=== PATIENT | female | born 1975 | race Caucasian/White ===

== ENCOUNTER 2016-10-06 19:48 | Observation (INO) | payer MEDICAID ==
[2016-10-06] MEDS ORDERED: HYDROmorphone 0.5 MG/0.5 ML Syringe IVPUSH ONE ×3 (21:02→23:33)
[2016-10-06] MEDS ORDERED: Sodium Chloride 0.9% 1,000 ML IV SCH (21:15)
--- NOTE | 2016-10-06 22:12 | EDM.PDOC ---
[id number] Complaint: ISSUES WITH GASTRIC BYPASS Time Seen by Provider: 10/06/16 20:50 Source of Information: Reports: Patient History Limitations: Reports: No Limitations - History of Present Illness INITIAL COMMENTS - FREE TEXT/NARRATIVE: 41-year-old female with a history of gastric bypass 10 years ago has had recurring problems with intermittent bowel obstruction and adhesions but is been doing well for the past 3 years. She started developing pain 3 weeks ago and was hoping it would pass but over the past 12 hours it has become much worse. It is periumbilical into the epigastric area, she has developed peritoneal irritation and nausea, some vomiting attempts. Bowels are still moving. No fever or chills. Onset: Gradual Severity: Moderate Associated Symptoms: Reports: Loss of Appetite, Malaise, Nausea/Vomiting. Denies: Chest Pain, Cough, Fever/Chills, Shortness of Breath Lower Abdominal Pain Score (Numeric/FACES): 9 - Related Data Allergies Allergy/AdvReac Type Severity Reaction Status Date / Time diphenhydramine Allergy Itching Verified 10/11/15 23:38 hydroxyzine HCl Allergy Itching Verified 10/11/15 23:38 [From Vistaril] hydroxyzine pamoate Allergy Itching Verified 10/11/15 23:38 [From Vistaril] ketorolac tromethamine Allergy Itching Verified 10/11/15 23:38 [From Toradol] tramadol HCl [From Ultram] Allergy Itching Verified 10/11/15 23:38 zolpidem tartrate Allergy Itching Verified 10/11/15 23:38 [From Ambien] Home Meds: Home Meds Calcium Carbonate/Vitamin D3 [Calcium Carb 500 MG] 1 tab PO DAILY 07/29/15 [ History] Cholecalciferol (Vitamin D3) [Vitamin D3] 1,000 unit PO DAILY 07/29/15 [History] rOPINIRole [Requip] 1 mg PO DAILY 07/29/15 [History] Past Medical History Gastrointestinal History: Reports: Bowel Obstruction, Irritable Bowel Syndrome Genitourinary History: Reports: None 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 (See Below) Other OB/BYN History: complete abdominal hysterectomy Musculoskeletal History: Reports: Back Pain, Chronic Hematologic History: Reports: Anemia, B12 Deficiency, Blood Transfusion(s), Folic Acid - Infectious Disease History Infectious Disease History: Reports: Chicken Pox - Past Surgical History HEENT Surgical History: Reports: Tonsillectomy GI Surgical History: Reports: Appendectomy, Bariatric Procedure, Cholecystectomy , Colonoscopy, EGD, Small Bowel Female Surgical History: Reports: Hysterectomy Neurological Surgical History: Reports: Lumbar Spine, Other (See Below) Social & Family History - Tobacco Use Smoking Status *Q: Heavy Tobacco Smoker Years of Tobacco use: 10 Packs/Tins Daily: 0.5 Used Tobacco, but Quit: No Second Hand Smoke Exposure: Yes - Caffeine Use Caffeine Use: Reports: None - Alcohol Use Days Per Week of Alcohol Use: 0 - Recreational Drug Use Recreational Drug Use: No ED ROS GENERAL - Review of Systems Review Of Systems: See Below Constitutional: Denies: Fever, Chills HEENT: Reports: No Symptoms Respiratory: Denies: Shortness of Breath, Cough Cardiovascular: Denies: Chest Pain GI/Abdominal: Reports: Abdominal Pain, Nausea, Vomiting. Denies: Diarrhea : Reports: No Symptoms Musculoskeletal: Reports: No Symptoms Skin: Reports: No Symptoms Neurological: Reports: No Symptoms Psychiatric: Reports: No Symptoms ED EXAM, GI/ABD - Physical Exam Exam: See Below Exam Limited By: No Limitations General Appearance: Alert, Moderate Distress Eyes: Bilateral: Normal Appearance (No jaundice, normal hydration) Head: Atraumatic Respiratory/Chest: No Respiratory Distress, Lungs Clear Cardiovascular: Regular Rate, Rhythm. No: Tachycardia GI/Abdominal: Normal Bowel Sounds, Soft, Tenderness (Exquisite tenderness with guarding across the upper abdomen, moderate rebound tenderness) Extremities: No: Pedal Edema Neurological: Alert, Oriented, No Motor/Sensory Deficits Psychiatric: Anxious Skin Exam: Warm, Dry Course - Vital Signs Last Recorded V/S: Last Vital Signs Temp 96.6 F 10/07/16 00:22 Pulse 63 10/07/16 00:22 Resp 16 10/07/16 00:22 BP 125/75 10/07/16 00:22 Pulse Ox 98 10/07/16 00:22 - Orders/Labs/Meds Orders: Active Orders 24 hr Category Date Time Status Abdomen Pelvis w Cont [CT] Stat Exams 10/06/16 22:10 Taken Sodium Chloride 0.9% [Normal Saline] 1,000 ml Med 10/06/16 21:15 Active IV ASDIRECTED Medication Orders Acetaminophen (Tylenol) 650 mg PO Q4H PRN PRN Reason: analgesia/fever Hydromorphone HCl (Dilaudid) 2 mg PO Q4H PRN PRN Reason: Pain Sodium Chloride (Normal Saline) 1,000 mls @ 500 mls/hr IV ASDIRECTED NATALYA Last Admin: 10/06/16 21:41 Dose: 500 mls/hr Dextrose/Lactated Ringer's (Dextrose 5%-Lactated Ringers) 1,000 mls @ 150 mls/ hr IV ASDIRECTED NATALYA Pantoprazole Sodium (Protonix Iv) 40 mg IVPUSH Q12H NATALYA Labs: Laboratory Tests 10/06/16 10/06/16 Range/Units 21:40 21:40 WBC 4.4 L (4.5-11.0) K/uL RBC 4.04 (3.30-5.50) M/uL Hgb 13.0 (12.0-15.0) g/dL Hct 39.1 (36.0-48.0) % MCV 97 (80-98) fL MCH 32 H (27-31) pg MCHC 33 (32-36) % Plt Count 173 (150-400) K/uL Neut % (Auto) 58 (36-66) % Lymph % (Auto) 36 (24-44) % [place] % (Auto) 5 (2-6) % Eos % (Auto) 0 L (2-4) % Baso % (Auto) 1 (0-1) % Sodium 139 L (140-148) mmol/L Potassium 4.9 (3.6-5.2) mmol/L Chloride 104 (100-108) mmol/L Carbon Dioxide 29 (21-32) mmol/L Anion Gap 10.9 (5.0-14.0) mmol/L BUN 8 (7-18) mg/dL Creatinine 0.5 L (0.6-1.0) mg/dL Est Cr Clr Drug Dosing 123.72 mL/min Estimated GFR (MDRD) > 60 (>60) Glucose 93 (74-106) mg/dL Calcium 8.5 (8.5-10.1) mg/dL Total Bilirubin 0.3 (0.2-1.0) mg/dL AST 42 H D (15-37) U/L ALT 24 (12-78) U/L Alkaline Phosphatase 184 H (46-116) U/L Total Protein 7.1 (6.4-8.2) g/dL Albumin 3.4 (3.4-5.0) g/dL Globulin 3.7 H (2.3-3.5) g/dL Albumin/Globulin Ratio 0.9 L (1.2-2.2) Amylase 45 (25-115) U/L Lipase 88 (73-393) U/L Meds: Medications Generic Name Dose Route Start Last Admin Trade Name Freq PRN Reason Stop Dose Admin Acetaminophen 650 mg 10/06/16 23:26 Tylenol PO Q4H PRN analgesia/fever Hydromorphone HCl 2 mg 10/06/16 23:31 Dilaudid PO Q4H PRN Pain Sodium Chloride 1,000 mls @ 500 mls/hr 10/06/16 21:15 10/06/16 21:41 Normal Saline IV 500 mls/hr ASDIRECTED NATALYA Administration Dextrose/Lactated Ringer's 1,000 mls @ 150 mls/hr 10/06/16 23:30 Dextrose 5%-Lactated Ringers IV ASDIRECTED NATALYA Pantoprazole Sodium 40 mg 10/06/16 23:45 Protonix Iv IVPUSH Q12H NATALYA Discontinued Medications Generic Name Dose Route Start Last Admin Trade Name Freq PRN Reason Stop Dose Admin Hydromorphone HCl 0.5 mg 10/06/16 21:02 10/06/16 21:43 Dilaudid IVPUSH 10/06/16 21:03 0.5 mg ONETIME ONE Administration Hydromorphone HCl 0.5 mg 10/06/16 22:25 10/06/16 22:27 Dilaudid IVPUSH 10/06/16 22:26 0.5 mg ONETIME ONE Administration Hydromorphone HCl Confirm 10/06/16 22:26 10/06/16 22:30 Dilaudid Administered 10/06/16 22:27 Not Given Dose 0.5 mg .ROUTE .STK-MED ONE Hydromorphone HCl 0.5 mg 10/06/16 23:33 10/06/16 23:36 Dilaudid IVPUSH 10/06/16 23:34 0.5 mg ONETIME ONE Administration Sodium Chloride 70 mls @ 3 mls/sec 10/06/16 22:18 10/06/16 22:32 Normal Saline IV 10/06/16 22:19 3 mls/sec ASDIRECTED STA Administration Iopamidol 100 ml 10/06/16 22:18 10/06/16 22:32 Isovue-300 (61%) IV 10/06/16 22:19 100 ml . DIRECTED STA Administration - Re-Assessments/Exams Free Text/Narrative Re-Assessment/Exam: 10/06/16 22:19 An IV was started, patient was hydrated with normal saline and given 0.5 mg of Dilaudid which provided her with some relief. CBC returned normal, extended chemistry profile, amylase and lipase were also reassuring. Patient then had a CT her abdomen and pelvis with IV contrast enhancement. 10/06/16 23:48 CT showed changes consistent with a partial bowel obstruction possibility or even intussusception at the anastomosis of her previous surgery of the small bowel. These findings were discussed with Meghan Beverly, she agreed to admit the patient for symptom control and observation. Departure - Departure Time of Disposition: 00:29 Disposition: Home, Self-Care 01 Condition: Fair Clinical Impression: Small bowel obstruction, Abdominal pain - Discharge Information - My Orders Last 24 Hours: My Active Orders 10/06/16 21:15 Sodium Chloride 0.9% [Normal Saline] 1,000 ml IV ASDIRECTED 10/06/16 22:10 Abdomen Pelvis w Cont [CT] Stat - Assessment/Plan Last 24 Hours: My Active Orders 10/06/16 21:15 Sodium Chloride 0.9% [Normal Saline] 1,000 ml IV ASDIRECTED 10/06/16 22:10 Abdomen Pelvis w Cont [CT] Stat
[2016-10-06] MEDS ORDERED: Iopamidol 612 MG/ML 100 ML Bottle IV STA (22:18)
[2016-10-06] MEDS ORDERED: HYDROmorphone 0.5 MG/0.5 ML Syringe ONE (22:26)
[2016-10-06] MEDS ORDERED: Pantoprazole 40 MG Vial IVPUSH SCH (23:45)
[2016-10-07] MEDS: Dextrose 5%-Lactated Ringers 1,000 ML IV SCH ×3 (00:15→19:43)
[2016-10-07] MEDS: HYDROmorphone 2 MG Tab PO PRN ×5 (01:05→23:17)
[2016-10-07] MEDS: Acetaminophen 325 MG Tab PO PRN ×2 (03:57→08:14)
[2016-10-07] MEDS ORDERED: Ondansetron 4 MG/2 ML SDV IVPUSH PRN (07:59)
[2016-10-07] MEDS ORDERED: Naloxone 0.4 MG/ML SDV IV PRN (08:14)
[2016-10-07] MEDS ORDERED: HYDROmorphone/Normal Saline 15 MG/30 ML PCA IV PRN (08:15)
--- NOTE | 2016-10-07 08:17 | PCM.HP ---
H&P History of Present Illness - General Date of Service: 10/07/16 Admit Problem/Dx: Admission Diagnosis/Problem Admission Diagnosis/Problem Partial small bowel obstruction Source of Information: Patient History Limitations: Reports: No Limitations - History of Present Illness Initial Comments - Free Text/Narative: Ivis states she has been having a stabbing pain in her abdomen for 2 weeks and it gradually has gotten worse. Pain is in the periumbilical area radiates down to the right lower pelvic area and down her right leg. Associated with nausea and has vomited twice 2 days ago and once 1 day ago. Aggravating factors: moving Alleviating factors: laying down Pain is a 8/10 before pain medication and a 8/10 after pain medication BMs have been regular, passing flatus. Not eating. Location: Reports: Abdomen Quality: Reports: Stabbing Severity: Severe Improves with: Reports: Rest Worsens with: Reports: Movement Associated Symptoms: Reports: Nausea/Vomiting Lower Abdominal Pain Score (Numeric/FACES): 8 - Related Data Allergies/Adverse Reactions: Allergies Allergy/AdvReac Type Severity Reaction Status Date / Time diphenhydramine Allergy Itching Verified 10/11/15 23:38 hydroxyzine HCl Allergy Itching Verified 10/11/15 23:38 [From Vistaril] hydroxyzine pamoate Allergy Itching Verified 10/11/15 23:38 [From Vistaril] ketorolac tromethamine Allergy Itching Verified 10/11/15 23:38 [From Toradol] tramadol HCl [From Ultram] Allergy Itching Verified 10/11/15 23:38 zolpidem tartrate Allergy Itching Verified 10/11/15 23:38 [From Ambien] Home Medications: Home Meds Calcium Carbonate/Vitamin D3 [Calcium Carb 500 MG] 1 tab PO DAILY 07/29/15 [ History] Cholecalciferol (Vitamin D3) [Vitamin D3] 1,000 unit PO DAILY 07/29/15 [History] rOPINIRole [Requip] 1 mg PO DAILY 07/29/15 [History] Past Medical History Gastrointestinal History: Reports: Bowel Obstruction, Irritable Bowel Syndrome Genitourinary History: Reports: None 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 (See Below) Other OB/BYN History: complete abdominal hysterectomy Musculoskeletal History: Reports: Back Pain, Chronic Hematologic History: Reports: Anemia, B12 Deficiency, Blood Transfusion(s), Folic Acid - Infectious Disease History Infectious Disease History: Reports: Chicken Pox - Past Surgical History HEENT Surgical History: Reports: Tonsillectomy GI Surgical History: Reports: Appendectomy, Bariatric Procedure, Cholecystectomy , Colonoscopy, EGD, Small Bowel Female Surgical History: Reports: Hysterectomy Neurological Surgical History: Reports: Lumbar Spine, Other (See Below) Social & Family History - Tobacco Use Smoking Status *Q: Heavy Tobacco Smoker Years of Tobacco use: 10 Packs/Tins Daily: 0.5 Used Tobacco, but Quit: No Second Hand Smoke Exposure: Yes - Caffeine Use Caffeine Use: Reports: None - Alcohol Use Days Per Week of Alcohol Use: 0 - Recreational Drug Use Recreational Drug Use: No H&P Review of Systems - Review of Systems: Review Of Systems: See Below General: Reports: Chills, Night Sweats HEENT: Reports: No Symptoms Pulmonary: Reports: No Symptoms Cardiovascular: Reports: No Symptoms Gastrointestinal: Reports: Abdominal Pain, Nausea Musculoskeletal: Reports: No Symptoms Skin: Reports: No Symptoms Psychiatric: Reports: No Symptoms Neurological: Reports: No Symptoms Hematologic/Lymphatic: Reports: No Symptoms Immunologic: Reports: No Symptoms Exam - Exam Exam: See Below - Vital Signs Vital Signs: Last Vital Signs Temp 95.9 F 10/07/16 06:52 Pulse 60 10/07/16 06:52 Resp 16 10/07/16 06:52 BP 97/63 10/07/16 06:52 Pulse Ox 96 10/07/16 06:52 Weight: 145 lb 12.8 oz - Exam Quality Assessment: DVT Prophylaxis General: Alert, Oriented, Mild Distress HEENT: PERRLA Neck: Supple, Trachea Midline Lungs: Clear to Auscultation, Normal Respiratory Effort Cardiovascular: Regular Rate, Regular Rhythm Abdomen: Soft, Tenderness (in the right lower quadrant. Periumbilical area is mildly tender ) (Female) Exam: Deferred Rectal (Female) Exam: Deferred Back Exam: Normal Inspection Extremities: Normal Inspection Skin: Warm, Dry, Intact Neurological: Cranial Nerves Intact Neuro Extensive - Mental Status: Alert, Oriented x3, Withdraws to Pain, Other ( flat affect) Neuro Extensive - Motor, Sensory, Reflexes: CN II-XII Intact, Normal Gait (per history ) Psychiatric: Labile Mood - Patient Data Result Diagrams: 10/06/16 21:40 10/06/16 21:40 *Q Meaningful Use (ADM) - VTE *Q VTE Criteria *Q: - Stroke *Q Stroke Criteria *Q: - AMI *Q AMI Criteria *Q: - Problem List (1) Abdominal pain SNOMED Code(s): 46122674 ICD Code: R10.9 - UNSPECIFIED ABDOMINAL PAIN Status: Acute Priority: High Current Visit: Yes (2) Small bowel obstruction SNOMED Code(s): 165515675 ICD Code: K56.69 - OTHER INTESTINAL OBSTRUCTION Status: Acute Current Visit: Yes Problem List Initiated/Reviewed/Updated: Yes Orders Last 24hrs: Active Orders 24 hr Category Date Time Status Incentive Spirometry [RT Incentive Spirometry] [RC] Care 10/07/16 08:11 Ordered ASDIRECTED UGI w Small Bowel wo Air [CR] Routine Exams 10/07/16 08:00 Ordered CBC W/O DIFF,HEMOGRAM [HEME] Timed Lab 10/08/16 04:00 Ordered COMPREHENSIVE METABOLIC PN,CMP [CHEM] Timed Lab 10/08/16 04:00 Ordered DRUG SCREEN, URINE [URCHEM] Routine Lab 10/07/16 08:06 Uncollected FERRITIN [CHEM] Routine Lab 10/07/16 08:08 Ordered MAGNESIUM [CHEM] Routine Lab 10/07/16 08:08 Ordered MAGNESIUM [CHEM] Timed Lab 10/08/16 04:00 Ordered PHOSPHORUS [CHEM] Routine Lab 10/07/16 08:08 Ordered PHOSPHORUS [CHEM] Timed Lab 10/08/16 04:00 Ordered UA W/MICROSCOPIC [URIN] Routine Lab 10/07/16 08:07 Uncollected VITAMIN B12 [CHEM] Routine Lab 10/07/16 08:08 Ordered VITAMIN D,25 OH BY LC-MS/MS [REF] Routine Lab 10/07/16 08:08 Ordered Dextrose 5%-Lactated Ringers 1,000 ml Med 10/06/16 23:30 Active IV ASDIRECTED HYDROmorphone [Dilaudid] Med 10/06/16 23:31 Active 2 mg PO Q4H PRN HYDROmorphone/Normal Saline [Dilaudid DUST CONTROL ENGINEER 15 MG in NS Med 10/07/16 08:15 Ordered 30 ML] 15 mg IV ASDIRECTED MVI, Adult with Vitamin K [Infuvite Adult] 10 ml Med 10/07/16 08:15 Ordered Thiamine [Vitamin B-1] 100 mg Magnesium Sulfate [Magnesium Sulfate 50%] 2 gm Folic Acid 1 mg Lactated Ringers [Ringers, Lactated] 1,000 ml IV ONETIME Ondansetron [Zofran] Med 10/07/16 07:59 Ordered 4 mg IVPUSH Q4H PRN Pantoprazole [ProTONIX IV] Med 10/07/16 11:00 Active 40 mg IVPUSH Q12H rOPINIRole [Requip] Med 10/07/16 09:00 Ordered 1 mg PO DAILY Medication Orders Acetaminophen (Tylenol) 650 mg PO Q4H PRN PRN Reason: analgesia/fever Last Admin: 10/07/16 03:57 Dose: 650 mg Hydromorphone HCl (Dilaudid) 2 mg PO Q4H PRN PRN Reason: Pain Last Admin: 10/07/16 05:17 Dose: 2 mg Admin: 10/07/16 01:05 Dose: 2 mg Hydromorphone HCl (Dilaudid Loading And Unloading Supervisor 15 Mg In Ns 30 Ml) 15 mg IV ASDIRECTED [facility] PRN Reason: Protocol Dextrose/Lactated Ringer's (Dextrose 5%-Lactated Ringers) 1,000 mls @ 150 mls/ hr IV ASDIRECTED [facility] Last Admin: 10/07/16 07:14 Dose: 150 mls/hr Infusion: 10/07/16 06:56 Dose: 150 mls/hr Admin: 10/07/16 00:15 Dose: 150 mls/hr Multivitamins/Minerals 10 ml/Thiamine HCl 100 mg/ Magnesium Sulfate 2 gm/ Folic Acid 1 mg / Lactated Ringer's 1,015.2 mls @ 200 mls/hr IV ONETIME [facility] Stop: 10/07/16 13:20 Ondansetron HCl (Zofran) 4 mg IVPUSH Q4H PRN PRN Reason: Nausea/Vomiting Pantoprazole Sodium (Protonix Iv) 40 mg IVPUSH Q12H [facility] Ropinirole HCl (Requip) 1 mg PO DAILY [facility] Assessment/Plan Comment:: A: Partial Transcietn small bowel intussusception Bariatric Surgery Unspecified Surgical Malabsorption Vitamin B Deficiency Vitamin D Deficiency Restless Leg Syndrome Noncompliance with post RNY Vitamins Plan: Admitted for observation - see copy of orders in EMR Pending results of UGI with Small Bowel Follow Through will either discharge to home in AM and have follow up in [facility] If UGI shows a partial small bowel obstruction will get a consult from Kei Linda MD surgeon disease control inspector. Meghan Flood
[2016-10-07] MEDS: rOPINIRole 1 MG Tab PO SCH (08:30)
[2016-10-07] MEDS ORDERED: rOPINIRole 0.5 MG Tab PO SCH (09:00)
[2016-10-07] MEDS ORDERED: MVI, Adult with Vitamin K 10 ML, Thiamine 100 MG, Magnesium Sulfate 2 GM, Folic Acid 1 ... IV ONE ×5 (09:30)
[2016-10-07] MEDS ORDERED: Iohexol 300 MG/ML 30 ML Bottle PO ONE (09:53)
[2016-10-07] MEDS ORDERED: Iohexol 647 MG/ML 50 ML SDV PO SCH (10:00)
--- NOTE | 2016-10-07 11:28 | CR ---
UGI w Small Bowel wo Air HISTORY: Abnormal CT scan yesterday. COMPARISON: CT scan 10/06/2016. FINDINGS: The esophagus appears normal patient has had prior gastric bypass the small gastric remnan t is normal. Small bowel transit time normal. At the distal anastomosis of patient's gastric bypass there is no evidence for intussusception to correlate with CT scan findings which may have been gandhi sient.. The terminal ileum appears unremarkable. Impression: 1. Negative upper GI small bowel follow-through study. Specifically no obstruction or abnormality at the small bowel anastomosis of patient's gastric bypass. These findings on the prior CT scan and ma y have been a transient finding.
[2016-10-07] MEDS: Pantoprazole 40 MG Vial IVPUSH SCH ×2 (11:36→23:10)
[2016-10-07] MEDS ORDERED: Ondansetron 4 MG Tab.DIS PO PRN (12:42)
[2016-10-07] MEDS ORDERED: Cyanocobalamin (Vitamin B12) 1,000 MCG/ML SDV IM ONE (14:00)
[2016-10-07] MEDS: Celecoxib 100 MG Cap PO SCH ×2 (14:13→21:36)
[2016-10-07] MEDS ORDERED: Iron Sucrose Complex 500 MG in Sodium Chloride 0.9% 250 ML IV ONE (14:30)
[2016-10-07] MEDS ORDERED: Sodium Chloride 0.9% 500 ML IV SCH ×2 (14:30→15:00)
[2016-10-07] MEDS: Dicyclomine 10 MG Cap PO SCH ×2 (16:36→21:36)
[2016-10-07] MEDS ORDERED: Thiamine 100 MG Tab PO SCH (21:00)
[2016-10-07] MEDS ORDERED: Celecoxib 100 MG Cap PO SCH (21:00)
[2016-10-07] MEDS: Multivitamins with Iron Tab.Chew CHEW SCH (21:36)
[2016-10-08] MEDS: Dextrose 5%-Lactated Ringers 1,000 ML IV SCH (02:50)
[2016-10-08] MEDS: HYDROmorphone 2 MG Tab PO PRN (03:12)
[2016-10-08] MEDS: Dicyclomine 10 MG Cap PO SCH ×2 (03:12→09:57)
[2016-10-08] MEDS: Acetaminophen 325 MG Tab PO PRN (05:58)
[2016-10-08] MEDS: Multivitamins with Iron Tab.Chew CHEW SCH (08:38)
[2016-10-08] MEDS: Celecoxib 100 MG Cap PO SCH (08:38)
[2016-10-08] MEDS: rOPINIRole 1 MG Tab PO SCH (08:38)
[2016-10-08] MEDS ORDERED: Iron Sucrose Complex 500 MG in Sodium Chloride 0.9% 250 ML IV ONE (09:00)
[2016-10-08 11:37] VITALS: BP 113/83
[2016-10-08] MEDS: Pantoprazole 40 MG Vial IVPUSH SCH (13:06)
--- NOTE | 2016-10-09 08:18 | DISCH ---
ADMISSION DIAGNOSES: Pain in the periumbilical area, SP Chuck-en-Y gastric bypass surgery, unspecified surgical malabsorption, B12 deficiency, history of nicotine addiction, chronic back pain, iron deficiency anemia B12. DISCHARGE DIAGNOSES: 1. Abdominal pain with ruled out bowel obstruction. 2. Irritable bowel syndrome. 3. Low ferritin. HISTORY: Ivis Miller presented to the emergency room on 10/06/2016 with reports of abdominal pain. She did have a CT scan, which showed fluid-filled lower abdominal small bowel segments near the distal small bowel anastomosis with a luminal soft tissue density within the small bowel segment at the anastomotic site. This could represent transient small bowel intussusception or luminal lesion with partial or early obstruction is not excluded. She was admitted to observation. She was started on Dilaudid SKEIN YARN DYER, Zofran, labs were drawn. She did have an upper GI barium swallow, which was completely negative stating that there was no bowel obstruction and the impression was negative upper GI with small- bowel follow-through, specifically no obstruction or abnormality of the small bowel anastomosis of patient's gastric bypass. The findings on the prior CT scan may have been a transient finding and this was dictated by Dr. Nav Alvarez. LABORATORY FINDINGS: Hemoglobin 11.2, ferritin was 11. Ivis was given Venofer 500 mg on 10/07/2016 and it was repeated on 10/08/2016 the remainder of her labs revealed a B12 of 176, thiamin and vitamin D are pending. HOSPITAL COURSE: Ivis was started on a step 4 diet after her upper GI, which was completed and she had 60% of lunch and 80% of dinner. She continues to report her pain as a 6/10. She is up and ambulating, states at the Celebrex and the Bentyl does not help and declines prescriptions for that and denies nausea. PHYSICAL EXAMINATION: HEENT: Negative. NECK: Negative. CHEST: No fast or irregular heart beat. ABDOMEN: No nausea, vomiting, diarrhea, or constipation. Denies any heartburn. Continues to report the vague abdominal pain in the periumbilical area that radiates down to her right lower quadrants and down her leg. CT of upper GI negative. EXTREMITIES: Negative. NEURO: Intact. PSYCHIATRIC: Mood is fat. DISPOSITION: Discharged to home. CONDITION: Stable and improving. FOLLOWUP APPOINTMENT: With Meghan Beverly PA-C on 10/23/2016 at 11:00 p.m. Referral to cooler supervisor appointment will be made in her area. DIET: Step 4 gastric bypass diet. Drink 8 to 10 glasses of water a day. ACTIVITY: Resume normal activities, may return to work to follow up p.r.n. HOME MEDICATIONS: She is to resume her Requip at 1 mg p.o. at bedtime. I recommend that she starts her post Chuck-en-Y gastric bypass vitamins again and multivitamin chewable 1 b.i.d., thiamine 100 mg p.o. daily or B complex calcium 1 tablet twice a day, and vitamin D3 1000 international units p.o. daily and vitamin B12 1000 mcg sublingual daily. She can take Tylenol 650 mg p.o. for pain. She has allergies to Benadryl, Vistaril, Toradol, tramadol, and Ambien. NABIL
== END 2016-10-08 13:31 | disposition home or self-care (01) ==
LOC: JP.ED 19:48 → JP.MS 23:26
PROVIDERS: ADMIT Physician Assistant Medical; ATTEND Physician Assistant Medical
DX: K56.1 Intussusception (principal); K58.9 Irritable bowel syndrome, unspecified; D50.9 Iron deficiency anemia, unspecified; F17.210 Nicotine dependence, cigarettes, uncomplicated; G89.29 Other chronic pain; M54.9 Dorsalgia, unspecified; Z79.899 Other long term (current) drug therapy; Z79.52 Long term (current) use of systemic steroids; Z88.8 Allergy status to other drugs, medicaments and biological substances; Z98.890 Other specified postprocedural states; Z90.89 Acquired absence of other organs; Z90.49 Acquired absence of other specified parts of digestive tract
CPT/HCPCS: 36415; 74177; 74245; 80053; 80305; 81001; 82150; 82306; 82607; 82728; 83690; 83735; 84100; 85025; 85027; 96361; 96365; 96366; 96367; 96372; 96375; 96376; 99285; A9270; C9113; G0378; J1170; J1756; J3411; J3420; J3475; J7030; J7040; J7042; J7050; J7120; Q9965; Q9967; J3490